=== PATIENT | male | born 1990 | race Asian ===

== ENCOUNTER 2021-10-04 11:11 | Emergency (ER) | payer OTHER ==
[~2021-10-04] VITALS: Ht 165.1 cm; Wt 65.0 kg
[2021-10-04 12:44] VITALS: BP 118/60
== END 2021-10-04 14:32 | disposition home or self-care (01) ==
LOC: ER 12:43
DX: N48.30 Priapism, unspecified (principal); F32.A Depression, unspecified; F41.9 Anxiety disorder, unspecified
CPT/HCPCS: 99281